=== PATIENT | female | born 1960 | race Caucasian/White ===

== ENCOUNTER 2018-11-02 09:52 | Day surgery (SDC) | payer BC ==
[~2018-11-02] VITALS: Ht 144.8 cm; Wt 59.5 kg
[2018-11-02] VITALS (11 sets, daily range): BP systolic 95–160; BP diastolic 51–75; PULSE 54–66; RESP 11–20; Ht 144.8 cm; Wt 59.5 kg
[2018-11-02] MEDS ORDERED: LACTATED RINGER'S 1,000 ML IV SCH (11:30)
[2018-11-02] MEDS ORDERED: POLYMYXIN/BACITRACIN 1L IRRIG ONE (12:07)
[2018-11-02] MEDS ORDERED: BUPIVACAINE 0.5% (SDV) 30 ML INJ ONE (12:07)
--- NOTE | 2018-11-02 12:07 | PREAC ---
Date/Time of Note Date/Time of Note DATE: 11/02/18 TIME: 12:04 Anesthesia Eval and Record Evaluation Time Pre-Procedure Interview DATE: 11/02/18 TIME: 12:04 Age 58 Sex female NPO: 8 hrs Preoperative diagnosis Right accessory 5th toe Planned procedure Excision of accessory toe Past Medical History Past Medical History: None Surgery & Anesthesia Issues No known issue Meds Anticoagulation: No Beta Sydney within 24 hr: No Reason Beta Sydney not given: Pt. not on B-S[place] No Active Prescriptions or Reported Meds Current Medications Lactated Ringer's 1,000 ml @ 30 mls/hr Q24H IV Last administered on 11/02/18at 11:36; Admin Dose 30 MLS/HR; Start 11/02/18 at 11:30 Meds reviewed: Yes Allergies Coded Allergies: No Known Allergy (Unverified , 11/02/18) Allergies Reviewed: Yes Labs/Studies Labs Reviewed: Reviewed by anesthesiologist test: N/A Pre-procedure Exam Last vitals Vital Signs Date Temp Pulse Resp B/P (MAP) Pulse Ox O2 O2 Flow FiO2 Time Delivery Rate 11/02/18 98.5 54 16 160/75 97 11:49 (103) Airway: Adequate mouth opening Mallampati: Mallampati I Teeth: Normal Lung: Normal Heart: Normal ASA Physical Status ASA physical status: 2 Emergency: None Planned Anesthetic General/MAC: LMA Planned Pain Management Parenteral pain med Pre-operative Attestations Prior to commencing anesthesia and surgery, the patient was re-evaluated, there was verification of: *The patient's identity *The results of appropriate recent lab work and preoperative vital signs *The above evaluation not changing prior to induction *Anesthetic plan, risk benefits, alternative and complications discussed with patient/family; questions answered; patient/family understands, accepts and wishes to proceed. CATHERINE JESUS MD Nov 02, 2018 12:07
--- NOTE | 2018-11-02 12:08 | HPN ---
Date/Time of Note Date/Time of Note DATE: 11/02/18 TIME: 12:08 Interval H&P Admission Note Pt. seen H&P reviewed: No system changes ADÁN COHEN DPM Nov 02, 2018 12:08
[2018-11-02] MEDS ORDERED: LIDOCAINE 2% (SDV) 5 ML INJ ONE (12:35)
[2018-11-02] MEDS ORDERED: PROPOFOL 20 ML ONE (12:35)
[2018-11-02] MEDS ORDERED: MEPERIDINE 100 MG INJ ONE (12:35)
[2018-11-02] MEDS ORDERED: CEFAZOLIN 1 GM INJ ONE (12:49)
[2018-11-02] MEDS ORDERED: ATROPINE 1 MG/10 ML SYRINGE ONE (13:03)
[2018-11-02] MEDS ORDERED: METOCLOPRAMIDE 10 MG INJ ONE (13:03)
[2018-11-02] MEDS ORDERED: ONDANSETRON 4 MG INJ ONE (13:03)
[2018-11-02] MEDS ORDERED: EPHEDrine 25 MG/5 ML SYG IV PRN (13:30)
[2018-11-02] MEDS ORDERED: FENTAnyl 50 MCG/ML VIAL IV PRN ×3 (13:30)
[2018-11-02] MEDS ORDERED: METOCLOPRAMIDE 10 MG INJ IV PRN (13:30)
[2018-11-02] MEDS ORDERED: DIPHENHYDRAMINE 50 MG INJ IV PRN (13:30)
[2018-11-02] MEDS ORDERED: LABETALOL HCL 20MG INJ IV PRN (13:30)
[2018-11-02] MEDS ORDERED: MIDAZOLAM 1 MG/ML 2 ML INJ IV PRN (13:30)
[2018-11-02] MEDS ORDERED: OXYCODONE/ACETAMINOPHEN (5/325) TAB PO PRN ×2 (13:30)
[2018-11-02] MEDS ORDERED: ONDANSETRON 4 MG INJ IV PRN (13:30)
[2018-11-02] MEDS ORDERED: MEPERIDINE 25 MG INJ IV PRN (13:30)
[2018-11-02] MEDS ORDERED: hydrALAzine 20 MG INJ IV PRN (13:30)
--- NOTE | 2018-11-02 13:37 | SIPON ---
Date/Time of Note Date/Time of Note DATE: 11/02/18 TIME: 13:36 Operative Report Preoperative Diagnosis Right Foot. Accessory toe and Tailor's bunion. Postoperative Diagnosis Same Operation/Procedure Performed Removal of Accessory toe and Tailor's bunioectomy. Surgeon see signature line custody assistant None Anesthesia: general Estimated blood loss: minimal Transfusion Required none Specimen Accessory Toe. Bone 5th met. Grafts/Implants none Complications none ADÁN COHEN DPM Nov 02, 2018 13:37
[2018-11-02] MEDS ORDERED: HYDROCODONE/APAP (10/325) TAB PO PRN (14:00)
[2018-11-02] MEDS ORDERED: ONDANSETRON (ODT) 4 MG TAB ODT PRN (14:00)
--- NOTE | 2018-11-02 14:58 | PAC ---
Date/Time of Note Date/Time of Note DATE: 11/02/18 TIME: 14:57 Post-Anesthesia Notes Post-Anesthesia Note Last documented vital signs Vital Signs Date Temp Pulse Resp B/P (MAP) Pulse Ox O2 O2 Flow FiO2 Time Delivery Rate 11/02/18 56 16 108/58 94 Room Air 14:13 (75) 11/02/18 98.3 13:45 Activity: WNL Respiratory function: WNL Cardiovascular function: WNL Mental status: Baseline Pain reasonably controlled: Yes Hydration appropriate: Yes Nausea/Vomiting absent: Yes Comments BT: 98.5 CATHERINE JESUS MD Nov 02, 2018 14:58
--- NOTE | 2018-11-02 17:01 | OPR ---
DATE OF OPERATION: 11/02/2018 PREOPERATIVE DIAGNOSES: 1. Accessory digit around the 5th toe region. 2. Tailor's bunion of 5th metatarsal. POSTOPERATIVE DIAGNOSES: 1. Accessory digit around the 5th toe region. 2. Tailor's bunion of 5th metatarsal. PROCEDURE: Removal of accessory digit and tailor's bunionette removal with osteotomy. ANESTHESIA: General. OPERATION IN DETAILS: The patient was brought into the OR and approximately 10 mL of 0.5% plain Anthony jessica was used circumferentially around the 5th metatarsophalangeal joint region of the right foot. A fter anesthesia was achieved, the area was prepped and draped in usual sterile fashion and tourniquet was applied around the foot and ankle. The foot and ankle were then exsanguinated. The tourniquet was inflated to 250 mmHg. Attention was then directed to the lateral aspect of the 5th metatarsal re gion. Utilizing sharp and blunt dissection, all bleeding vessels were ligated and nervous tissue was retracted. There was redundant tissue where the accessory toe was at. After deep dissection, it wa s noted that the accessory digit was complete proximal phalanx. It appeared with a small residual ph alanx plantarly. Both were removed in toto. The area was then copiously lavaged with antibiotic greta ution. Attention was then directed to the 5th metatarsal where utilizing a sagittal saw, the tailor' s bunion was removed and the osteotomy was performed. The area was then copiously lavaged with antib iotic solution. The area was then inspected. All tendinous structures, both flexor and extensor rem ained intact. The capital fragment was in good alignment and approximation on the 5th metatarsal and any accessory bone tissue had been removed and sent to pathology for gross analysis. The area was t hen again flushed with antibiotic solution. The subcutaneous tissue was then coapted with 2-0 Vicryl suture and 3-0 Vicryl suture. The redundant skin was then removed in a plastic surgery technique to remove redundancy and overgrowth of skin. The area was then coapted with 2-0 Vicryl suture. A 3-0 nylon suture was then used to close the skin. At the end of the case, approximately 7 mL of 0.5% david in Marcaine was utilized circumferentially around the 5th metatarsal. There were no intraoperative c omplications. There was minimal blood loss. The tourniquet was released and normoactive hyperemia w as noted to all the digits of the right foot. A bandage of 4 x 4's, rolled gauze and Coban was then applied around the foot. Again, there was normoactive hyperemia with release of the tourniquet. Thi s patient tolerated the procedure well and left the OR in stable condition. Dictated By: ADÁN JULIO/HANNAH Conf#: [id number] DID#: [id number]
== END 2018-11-02 15:20 | disposition home or self-care (01) ==
LOC: SDS 09:52 → EDBD 12:30 → SDS 15:20
PROVIDERS: ATTEND Podiatrist Foot & Ankle Surgery
DX: Q69.2 Accessory toe(s) (principal)
CPT/HCPCS: 28344; 73630; 88305; 88311; J0461; J0690; J2175; J2405; J2765; Z7512; Z7610